=== PATIENT | female | born 1945 | race Caucasian/White ===

== ENCOUNTER → 2019-01-31 14:55 | Outpatient (CLI) | payer MEDICARE, OTHER, SELFPAY ==
--- NOTE | 2019-01-31 | DI.MG.S_ITS ---
UNILATERAL LEFT DIGITAL SCREENING MAMMOGRAM 3D/2D WITH CAD POST MASTECTOMY: 01/31/2019 CLINICAL: Routine screening. Breast cancer. Comparison is made to exams dated: 12/15/2017 mammogram, 11/04/2016 mammogram, and 10/16/2015 mammogram - [facility]. The tissue of left breast is heterogeneously dense. This may lower the sensitivity of mammography. Current study was also evaluated with a Computer Aided Detection (CAD) system. No significant masses, calcifications, or other findings are seen in the breast. There has been no significant interval change. IMPRESSION: NEGATIVE There is no mammographic evidence of malignancy. A 1 year screening mammogram is recommended. This exam was interpreted at Station ID: [id number]. NOTE: For mammograms, a report in lay terms will be sent to the patient. Approximately 15% of breast malignancies will not be visualized mammographically. In the management of a palpable breast mass, a negative mammogram must not discourage biopsy of a clinically suspicious lesion. Electronically Signed By: Jair nascimento/krystal:01/31/2019 18:10:09 letter sent: Normal Exam ACR BI-RADS Category 1: Negative 3341F
== END ==
PROVIDERS: PCP Family Medicine; Visit Provider Family Medicine
DX: Z12.31 Encounter for screening mammogram for malignant neoplasm of breast (principal); Z85.3 Personal history of malignant neoplasm of breast
CPT/HCPCS: 77063; 77067

== ENCOUNTER → 2021-12-01 12:28 | Outpatient (CLI) | payer MEDICARE, OTHER, SELFPAY ==
--- NOTE | 2021-12-01 | DI.MG.S_ITS ---
UNILATERAL LEFT DIGITAL SCREENING MAMMOGRAM 3D/2D WITH CAD POST MASTECTOMY: 12/01/2021 CLINICAL: Routine screening. Personal history of right breast cancer. Family history of breast cancer. Comparison is made to exams dated: 01/31/2019 mammogram, 12/15/2017 mammogram, and 11/04/2016 mammogram - [facility]. The tissue of left breast is heterogeneously dense. This may lower the sensitivity of mammography. Current study was also evaluated with a Computer Aided Detection (CAD) system. No significant masses, calcifications, or other findings are seen in the breast. There has been no significant interval change. IMPRESSION: NEGATIVE There is no mammographic evidence of malignancy. A 1 year screening mammogram is recommended. This exam was interpreted at Station ID: [id number]. NOTE: For mammograms, a report in lay terms will be sent to the patient. Approximately 15% of breast malignancies will not be visualized mammographically. In the management of a palpable breast mass, a negative mammogram must not discourage biopsy of a clinically suspicious lesion. Electronically Signed By: Kary horn/krystal:12/01/2021 15:28:42 letter sent: Normal Exam ACR BI-RADS Category 1: Negative 3341F
== END ==
PROVIDERS: PCP Nurse Practitioner Family; Referring Provider Nurse Practitioner Family; Visit Provider Nurse Practitioner Family
DX: Z12.31 Encounter for screening mammogram for malignant neoplasm of breast (principal); Z85.3 Personal history of malignant neoplasm of breast; Z80.3 Family history of malignant neoplasm of breast
CPT/HCPCS: 77063; 77067

== ENCOUNTER → 2023-09-24 13:49 | Outpatient (CLI) | payer MEDICARE, OTHER, SELFPAY ==
--- NOTE | 2023-09-24 13:53 | DI.RAD.S_ITS ---
PROCEDURE: XR CHEST 2V INDICATIONS: PERSISTANT COUGH TECHNIQUE: 2 views of the chest were acquired. COMPARISON: [facility], CHEST 2 VIEW, 11/05/2015, 11:42. FINDINGS: Surgical changes and devices: None. Lungs and pleura: Lungs are clear. No pleural effusions or pneumothorax. Peribronchial cuffing. Mediastinum: Mediastinal contours are normal. Heart size is normal. Bones and chest wall: No suspicious bony abnormalities. Soft tissues appear unremarkable. IMPRESSION: Peribronchial cuffing, typically indicating infectious or inflammatory bronchitis. Dictated by: Saad Lorenzo M.D. on 09/24/2023 at 15:05 Approved by: Saad Lorenzo M.D. on 09/24/2023 at 15:06
== END ==
PROVIDERS: PCP Family Medicine; Referring Provider Nurse Practitioner; Visit Provider Nurse Practitioner
DX: R05.3 Chronic cough (principal)
CPT/HCPCS: 71046

== ENCOUNTER → 2023-12-27 09:41 | Outpatient (CLI) | payer MEDICARE, OTHER, SELFPAY ==
--- NOTE | 2023-12-27 09:43 | DI.RAD.S_ITS ---
PROCEDURE: XR DEXA AXIAL SKELETON INDICATIONS: Unspecified menopausal and perimenopausal disorder COMPARISON: [facility], , DEXA AXIAL SKELETON, 10/16/2015, 15:33. FINDINGS: Lumbar Spine: Bone mineral density 0.784 g/cm2, T score -2.4, osteopenia. Left Hip: Bone mineral density 0.661 g/cm2, T score -2.3, osteopenia. Left Femoral Neck: Bone mineral density 0.513 g/cm2, T score -3.0, osteoporosis. Right Hip: Bone mineral density 0.702 g/cm2, T score -2.0, osteopenia. Right Femoral Neck: Bone mineral density 0.581 g/cm2, T score -2.4, osteopenia. FRAX not calculated due to T-score greater than -2.5. (T score greater or equal to -1.0 to: NORMAL) (T score from -1.1 to -2.4: OSTEOPENIA) (T score less than or equal to -2.5: OSTEOPOROSIS) IMPRESSION: Osteoporosis. Direct comparison not performed due to differences in DEXA machines. However, osteoporosis was previously seen in 2016. Dictated by: Segun Ferrell M.D. on 12/27/2023 at 12:00 Approved by: Segun Ferrell M.D. on 12/27/2023 at 12:05
== END ==
LOC: RAD 09:41
PROVIDERS: PCP Family Medicine; Referring Provider Family Medicine; Visit Provider Family Medicine
DX: M81.0 Age-related osteoporosis without current pathological fracture (principal); N95.9 Unspecified menopausal and perimenopausal disorder
CPT/HCPCS: 77080

== ENCOUNTER 2024-05-24 11:27 | Day surgery (SDC) | payer MEDICARE, OTHER, SELFPAY ==
[2024-05-24] VITALS (7 sets, daily range): BP systolic 77–113; BP diastolic 37–61; PULSE 54–75; RESP 14–20; TEMP 36–36.8; O2SAT 96–98
--- NOTE | 2024-05-24 | PATH_ITS ---
[facility] Accession Number: [id number] No. of containers..01 Tissue . 01 Material submitted: . colon - RIGHT COLON POLYP . 01 Diagnosis: Colon, right, polyp biopsy: Tubular adenoma. TXN 05/26/2024 1052 Local . 01 Electronically signed: . Bethanie Lyles MD, Pathologist NPI- [id number] . 01 Gross description: . Received in formalin with two patient identifiers and right colon, is a single barrera soft tissue fragments, 0.6 cm in greatest dimension. Submitted in A1. ([id number]) /MRV 05/25/2024 1450 Local . 01 Pathologist provided ICD-10: D12.6 . 01 CPT . 298032 Specimen Comment: A courtesy copy of this report has been sent to [phone] Performed at: [address] [facility] [address], [place], [place] [id number] MD Tam Barcenas MD Phone: [phone]
[2024-05-24] MEDS: LACTATED RINGERS 1,000 ML 42 ML IV (12:04)
--- NOTE | 2024-05-24 12:46 | PM.HP.1 ---
History of Present Illness History of Present Illness Chief complaint: Colonoscopy Narrative: History of rectal bleeding and history of colon polyps [facility] Surgical History (Updated 01/18/18 @ 05:43 by Conversion Provider) History of total mastectomy Status post tubal ligation Status post tonsillectomy and adenoidectomy Family History (Updated 11/17/16 @ 00:00 by Conversion Provider) Father Cancer Mother High cholesterol Social History Smoking Status: Never smoker alcohol intake: current Meds Home Medications and Allergies Home Medications Medication Instructions Recorded Confirmed Type NAPROXEN (#NAPROXEN) 375 mg PO PRN Pain ##0 03/30/12 05/24/24 History propranolol 120 mg capsule,24 120 mg PO BID #180 tabs 06/26/16 05/24/24 Rx hr,extended release urea 20 % topical cream 30 % TP QID ##120 07/31/16 Rx atorvastatin 20 mg tablet (Lipitor) 20 mg PO HS #30 tabs 10/16/16 05/24/24 Rx NARATRIPTAN HCL (NARATRIPTAN) 2.5 mg PO PRN PRN #90 tabs 10/20/16 05/24/24 Rx cholecalciferol (vitamin D3) 25 1,000 unit PO QDAY ##0 11/02/16 05/24/24 History mcg (1,000 unit) tablet (Vitamin D3) Allergies Allergy/AdvReac Type Severity Reaction Status Date / Time clotrimazole [CLOTRIMAZOLE] Allergy Mild hives Verified 05/24/24 11:40 Penicillins [PENICILLINS] Allergy Unknown rash Verified 05/24/24 11:40 Exam Vital Signs (past 8 hours): - 05/24/24 11:45 Temperature 98.3 F Pulse Rate 54 L Respiratory Rate 16 Blood Pressure 113/61 Pulse Oximetry 97 Oxygen Delivery Method Room Air Oxygen Flow Rate 0 Oxygen Delivery Method Room Air Oxygen Flow Rate 0 Narrative Exam Narrative: Oropharynx free of lesions Chest clear to auscultation percussion Cardiac exam reveals no S3 or murmur Assessment & Plan Assessment & Plan narrative: Need for colonoscopy due to history of rectal bleeding and history of colon polyps. Risks, benefits, alternatives have been explained. Time-Based Coding :: [TOTAL MINUTES] spent with patient and on the chart (including review of chart, obtaining history, exam, reviewing outside data, placing orders, documenting exam and treatment plan, and counseling patient) on [DATE].
--- NOTE | 2024-05-24 12:48 | P.OP.COLON_ITS ---
Operative Date/Time/Diagnoses Date of procedure: 05/24/24 Pre-op diagnosis: See indication and findings Procedure & Clinicians Study performed: Colonoscopy Indications: Rectal bleed and history of colon polyps Surgeon: Raphael Torres Procedure Notes Procedure in detail: After informed consent was obtained the patient was placed in left lateral decubitus position. The video colonoscope was introduced the rectum slowly advanced cecum. On slow withdrawal mucosa was carefully examined. The scope was removed. The patient tolerated procedure well. Blood loss none Complications none Sedation mac Findings 1. 5 mm polyp in the right colon Jumbo biopsy removed completely 2. Very tortuous sigmoid and left colon 3. No clear bleeding lesion but a somewhat unilateral edematous pattern to 1 wall of the rectum. I wonder if this could represent focal rectal prolapse. Patient should follow up by telephone with doctors in [facility] in GI office
== END 2024-05-24 14:05 | disposition home or self-care (01) ==
PROVIDERS: PCP Family Medicine; Referring Provider Internal Medicine Gastroenterology; Visit Provider Internal Medicine Gastroenterology
PROC: 0DJD8ZZ Inspection of Lower Intestinal Tract, Via Natural or Artificial Opening Endoscopic (ICD-10-PCS; CPT 45378; principal; 2024-05-24 12:30)
DX: K62.5 Hemorrhage of anus and rectum (principal); Z86.010 Personal history of colon polyps; D12.6 Benign neoplasm of colon, unspecified
CPT/HCPCS: 45380; J2704

== ENCOUNTER → 2025-06-18 13:28 | Outpatient (CLI) | payer MEDICARE, OTHER, SELFPAY ==
--- NOTE | 2025-06-18 13:30 | DI.MG.S_ITS ---
MM screening mammo unilat LT: 06/18/2025. BI-RADS: 1 CLINICAL: 80-year old female for left screening mammogram. No Tyrer-Cuzick risk score calculation due to the patient's personal history of breast cancer. Patient reports a history of right breast carcinoma diagnosed at age 54. Status-post right mastectomy. No first-degree family history of breast cancer. The patient had a prior right breast biopsy. PRIOR EXAMS 12/01/2021, 01/31/2019, 12/15/2017, 11/04/2016, 10/16/2015. MAMMOGRAPHY TECHNIQUE: 2D and 3D (tomosynthesis) digital mammographic views obtained, with additional images as needed for full coverage. Current study was also evaluated with a Computer Aided Detection (CAD) system. DENSITY Left: C. The breast is heterogeneously dense, which may obscure small masses. MAMMOGRAPHY FINDINGS Left: No suspicious mass, asymmetry, microcalcification, or other abnormality seen. IMPRESSION: Left * No evidence of malignancy. RECOMMENDATIONS Left * Annual screening mammography. OVERALL ASSESSMENT CATEGORY BI-RADS-1: Negative. [employer] recommends annual screening mammography beginning at age 40 for women with average risk of breast cancer. ELECTRONICALLY SIGNED: Jair Woods M.D. on 06/19/2025 at 09:18:56 AM PT Interpreting Station ID: [id number]
== END ==
LOC: MAMMO 13:29
PROVIDERS: PCP Physician Assistant; Referring Provider Family Medicine; Visit Provider Family Medicine
DX: Z12.31 Encounter for screening mammogram for malignant neoplasm of breast (principal); Z85.3 Personal history of malignant neoplasm of breast; R92.332 Mammographic heterogeneous density, left breast; Z90.11 Acquired absence of right breast and nipple
CPT/HCPCS: 77063; 77067